=== PATIENT | female | born 2000 ===

== ENCOUNTER 2025-01-12 12:09 | Inpatient (IN) | payer BC, OTHER ==
[~2025-01-12] VITALS: Ht 162.6 cm; Wt 75.0 kg
[2025-01-12 13:53] VITALS: BP 114/85
[2025-01-12 14:04] VITALS: BP 114/85
[2025-01-12] MEDS ORDERED: ZYPREXA PO (14:31)
[2025-01-12] MEDS ORDERED: ONDA4 PO (14:32)
[2025-01-12] MEDS ORDERED: Hydroxyzine Pam25 MG PO (14:32)
[2025-01-12] MEDS ORDERED: Melatonin 3 MG Tab PO PRN (14:55)
[2025-01-12] MEDS ORDERED: Acetaminophen 325 MG TABLET PO PRN (14:55)
[2025-01-12] MEDS ORDERED: TraZODone HCl 50 MG Tab PO PRN (14:55)
[2025-01-12] MEDS ORDERED: Calcium Carbonate 500 MG Tab Chew PO PRN (14:55)
[2025-01-12] MEDS ORDERED: DiphenhydrAMINE HCl 50 MG/ML 1ML Vial IV PRN (14:55)
[2025-01-12] MEDS ORDERED: Aluminum Hydroxide 320MG/5ML 473 ML PO PRN (14:55)
[2025-01-12] MEDS ORDERED: DiphenhydrAMINE HCl 50 MG Cap PO PRN (14:55)
[2025-01-12] MEDS ORDERED: FLU VACC TS2024-25(6MOS UP)/PF 45 MCG/0.5 ML SYRINGE IM SCH (15:00)
[2025-01-12] MEDS ORDERED: Haloperidol Lactate Inj. 5 MG/ML Injection IM PRN (15:00)
[2025-01-12] MEDS ORDERED: Haloperidol 5 MG Tab PO PRN (15:00)
[2025-01-12] MEDS ORDERED: LORazepam 2 MG Tab PO PRN (15:00)
[2025-01-12] MEDS ORDERED: Ibuprofen 600 MG Tab PO PRN (15:00)
[2025-01-12] MEDS ORDERED: LORazepam 2 MG/ML 1ML Injection IM PRN (15:00)
[2025-01-12] MEDS ORDERED: HydrOXYzine Pamoate 50 MG Cap PO PRN (15:00)
[2025-01-12] MEDS ORDERED: OLANZapine ODT 10 MG Tab MM PRN (15:05)
[2025-01-12] MEDS ORDERED: Polyethylene Glycol 3350 17 gm PO PRN (15:05)
[2025-01-12] MEDS ORDERED: Ondansetron 4 MG SoluTab MM PRN (15:10)
[2025-01-12 16:46] VITALS: BP 114/85
--- NOTE | 2025-01-12 18:31 | NUR ---
SHIFT SUMMARY/ARRIVAL NOTE. PT ARRIVED TO THE UNIT FOR DIRECT ADMIT FROM [place] AT APPROX 1345. PT IS AxOx4. PLEASANT AND COOPERATIVE WITH CARE. SHE WAS ADMITTED FOR SI, WHICH SHE IS STILL ENDORSING AT THIS TIME. PT REPORTS RECENT RELATIONSHIP PROBLEMS HAVE TRIGGERED HER CURRENT SI, BUT SHE DENIES PLAN OR INTENT. SHE ALSO REPORTED A HISTORY OF BI POLAR AND TAKES MEDS AND SEES A PSYCHIATRIST AT [facility]. PT HAS BEEN TEARFUL ON AND OFF, BUT IS EASILY REDIRECTABLE AND REASSURED. SHE WAS ORIENTED TO THE UNIT AND HER ADMISSION WAS COMPLETED. PT IS CURRENTLY SITTING IN SENSORY ROOM TALKING ON THE PHONE. SHE APPEARS CALM AND RELAXED AT THIS TIME.
[2025-01-12 20:15] VITALS: BP 119/75
--- NOTE | 2025-01-13 04:21 | NUR ---
SHIFT SUMMARY PT PRESENT IN GROUP ROOM AT START OF SHIFT. SHE REPORTS HER MOOD "SAD". AFFECT IS CONGRUENT TO STATED MOOD. SHE REPORTED FEELING ANXIOUS, MASS SCORE OF 1 FOR WHICH SHE REQUESTED AND RECEIVED VISTARIL. SHE ALSO RECEIVED PRN TRAZODONE TO ASSIST WITH SLEEPING. SHE HAD EVENING SNACK AND WENT TO BED AT APPROXIMATELY 2030. PT HAS APPEARED TO SLEEP WELL. Q15 MINUTE CHECKS TO CONTINUE PER UNIT PROTOCOL.
[2025-01-13 08:12] VITALS: BP 118/77
[2025-01-13] MEDS ORDERED: Multivitamins 1 Tab PO SCH (09:00)
--- NOTE | 2025-01-13 16:48 | NUR ---
SHIFT SUMMARY: PT A/O X4. PLEASSANT AND COOPERATIVE. ADMITS TO BEING SI POSITIVE. HAS NO GUNN. SAID SHE HAS BEEN DEPRESSED FOR A COUPLE MONTHS NOW. STTAED SHE DIDN'T SLEEP MUCH. STATED IT WAS FROM THE BED HURTING HER BACK. MEDCATED WITH TYLENOL AND RESOLVED. PT IS CALM HAS A FLAT AFFECT. HAS GOOD EYE CONTACT. HAS FAMILY SUPPORT OF AND MOTHER AND FATHER. PT TEARING WHEN TALKING ABOUT MISSING HER . PT STATES THAT SHE IS STRESSED AND GETS NAUSEATED. SHE USES ZOFRAN BEFORE MEALS AND IS ABLE TO EAT BETTER AT HOME . ATE A FEW BITES AT BREAKFAST AND ATE BETTER FOR LUNCH. IS WILLING TO GET BETTER WHILE SHE IS "HERE". WILL CONTINUE TO MONITOR, ENCOURAGED TO ASK STAFF FOR THINGS IF SHOULD NEED SOMETHING OR JUST TO TALK.
[2025-01-13 20:53] VITALS: BP 121/69
[2025-01-13] MEDS ORDERED: Lithium Carbonate 300 MG TabCR PO SCH (21:00)
[2025-01-13] MEDS ORDERED: OLANZapine 10 MG Tab PO SCH (21:00)
[2025-01-13] MEDS ORDERED: LamoTRIgine 25 MG Tab PO SCH (21:00)
--- NOTE | 2025-01-14 04:27 | NUR ---
SHIFT SUMMARY PT PRESENT IN GROUP ROOM AT START OF SHIFT, WATCHING TV. SHE IS CALM AND COOPEARTIVE. DENIES ANY SI, HI OR AVH. FLAT AFFECT AND APPEARS SAD. PT WAS SLIGHTLY MORE ENGAGING IN CONVERSATION WITH THIS RN COMPARED TO MY PREVIOUS ENCOUNTER. PT RECEIVED PRN TYLENOL FOR BACK PAIN, SHE WAS COMPLIANT WITH SCHEDULED MEDICATIONS. SHE WENT TO BED AT APPROXIMATELY 2130. Q15 MINUTE CHECKS TO CONTINUE PER UNIT PROTOCOL.
[2025-01-14 06:29] LABS: BASOPHILS ABSOLUTE AUTO 0.07 K/mm3 (0.00-0.23); BASOPHILS PERCENT AUTO 1 % (0-2); EOSINOPHILS ABSOLUTE AUTO 0.12 K/mm3 (0.00-0.68); EOSINOPHILS PERCENT AUTO 2 % (0-6); Hematocrit 42.5 % (33.0-51.0); Hemoglobin 14.6 g/dL (11.5-16.0); IMMATURE GRAN ABSOLUTE AUTO 0.01 K/mm3 (0.00-0.10); IMMATURE GRAN PERCENT AUTO 0 % (0-1); LYMPHOCYTES ABSOLUTE AUTO 2.19 K/mm3 (0.84-5.20); LYMPHOCYTES PERCENT AUTO 37 % (21-46); MONOCYTES ABSOLUTE AUTO 0.59 K/mm3 (0.16-1.47); MONOCYTES PERCENT AUTO 10 % (4-13); Mean Corpuscular HGB 31.6 pg (26.0-34.0); Mean Corpuscular HGB Conc 34.4 g/dL (31.5-36.5); Mean Corpuscular Volume 92 fL (80-100); NEUTROPHILS PERCENT AUTO 49 % (41-73); Platelet Count 300 K/mm3 (150-400); RDW Coefficient Variation 11.9 % (11.7-14.2); Red Blood Cell Count 4.62 M/mm3 (3.80-5.20); White Blood Cell Count 5.88 K/mm3 (4.00-11.30)
[2025-01-14 06:52] LABS: Alanine Aminotransfer (ALT/SGP 22 U/L (12-78); Albumin, Blood 4.1 g/dL (3.4-5.0); Albumin/Globulin Ratio 1.1 (0.8-1.8); Alk Phos 130 U/L (50-136); Anion Gap 12 mmol/L (3-11); Aspartate Aminotrans (AST/SGOT 11 U/L (12-37); Bilirubin, Total 0.3 mg/dL (0.1-1.0); Blood Urea Nitrogen 14 mg/dL (8-24); Bun/Creatinine Ratio 16.7 (12.0-20.0); CHOL/HDL RATIO 4.2; CO2, Blood 26 mmol/L (21-32); Calcium, Blood 9.6 mg/dL (8.5-10.1); Chloride, Blood 106 mmol/L (98-108); Cholesterol 239 mg/dL (50-200); Creatinine, Blood 0.84 mg/dL (0.40-1.00); Globulin, Blood 3.8 g/dL (2.2-4.0); Glomerular Filtration Rate 99 (60-); Glucose, Blood 95 mg/dL (70-99); HDL Cholesterol 57 mg/dL (>39); Low Density Lipoprotein Chol 169 mg/dL (0-110); Potassium, Blood 4.3 mmol/L (3.5-5.5); Sodium, Blood 140 mmol/L (136-145); Total Protein, Blood 7.9 g/dL (6.4-8.2); Triglycerides 65 mg/dL (30-140); Very Low Density Lipoprot Chol 13 mg/dL (6-28)
[2025-01-14 08:08] VITALS: BP 108/69
--- NOTE | 2025-01-14 17:52 | NUR ---
PT A/O X4. PLESANT AND COOPERATIVE. DENIES TO BE SI, HI AND AVH. PARTICIPATES WELL IN GROUPS. HAS SHOWN TO BE IN A LESS SAD MOOD TODAY THAN YESTERDAY BUT STATES STILL DEPRESSED. HAS BEEN ABLE TO CALL AND MOM. PT IS SMILING AND ENGAGED MORE TODAY. GOOD EYE CONTACT TODAY. PT HAD ZOFRAN BEFORE DINNER HOUR NAUSEA PRESANT. PT WAS ABLE TO TAKE IN DINNER WITH HELP OF IT. STATES I'M DOING BETTER" AND MORE SOCIAL IN THE [place] WILL COTINUE TO MONITOR FOR SAFETY AND WELLNESS.
[2025-01-14] MEDS ORDERED: Lithium Carbonate 450 MG TabCR PO SCH (21:00)
[2025-01-14] MEDS ORDERED: OLANZapine 5 MG Tab PO SCH (21:00)
--- NOTE | 2025-01-15 04:25 | NUR ---
SHIFT SUMMARY PT PRESENT IN HALLWAY, TALKING TO HER ROOMMATE AT START OF MY SHIFT. SHE IS PLEASANT AND COOPERATIVE. FLAT AFFECT IS SLIGHTLY IMPROVED FROM MY PREVIOUS SHIFT. PT DENIES ANY SI, HI, THOUGHTS OF SELF HARM OR AVH. PT STATED HER MOOD WAS "FINE, I HAD A GOOD DAY." PT WAS COMPLIANT WITH MEDICATIONS. SHE ASKED FOR AND RECEIVED HYDROXYZINE FOR ANXIETY, MASS SCORE OF 1. PT WENT TO BED AT APPROXIMATELY 2130 AND HAS APPEARED TO SLEEP WELL THROUGHOUT THE NIGHT. Q15 MINUTE CHECKS TO CONTINUE PER UNIT PROTOCOL.
[2025-01-15 08:17] VITALS: BP 119/75
[2025-01-15] MEDS ORDERED: ClonazePAM 1 MG Tab PO PRN (16:30)
--- NOTE | 2025-01-15 16:49 | NUR ---
SHIFT SUMMARY: PT ALERT, ORIENTED AND COOPERATIVE WITH CARE. COMPLIANT WITH MEDICATIONS. DENIED SI, HI AND AVH. PT HAD A VISIT WITH HER MOTHER THIS AFTERNOON. PT ATTENDED GROUPS AND MEALS. PRESENT ON UNIT AND ACTIVE IN MILIEU. TALKING WITH ROOMMATE AND STAFF.
[2025-01-15 20:57] VITALS: BP 124/71
--- NOTE | 2025-01-16 04:46 | NUR ---
SHIFT SUMMARY PATIENT RESTING ON BED IN ROOM AT BEGINNING OF SHIFT. VERBALIZED FEELING ANXIOUS TONIGHT. NOT ELABORATING REGARDING WHY SHE IS FEELING ANXIOUS AT THIS TIME. BACK TO BED AFTER SNACK TIME. COOPERATIVE WITH MEDICATIONS. DENIES SI, HI, AVH. PATIENT APPEARS TO BE SLEEPING WELL T/O NIGHT RESP EVEN AND UNLABORED. CONTINUE TO MONITOR Q15MIN.
[2025-01-16 08:17] VITALS: BP 118/71
[2025-01-16 10:41] LABS: Albumin, Blood 4.3 g/dL (3.4-5.0); Bilirubin, Total 0.3 mg/dL (0.1-1.0); Bun/Creatinine Ratio 15.4 (12.0-20.0); Creatinine, Blood 0.78 mg/dL (0.40-1.00); Globulin, Blood 4.1 g/dL (2.2-4.0); Potassium, Blood 3.8 mmol/L (3.5-5.5); Total Protein, Blood 8.4 g/dL (6.4-8.2)
[2025-01-16 10:43] LABS: Lithium 0.58 mmol/L (0.60-1.20)
--- NOTE | 2025-01-16 16:41 | NUR ---
SHIFT SUMMARY: PT ALERT, ORIENTED AND COOPERATIVE WITH CARE. COMPLIANT WITH MEDICATIONS. DENIES SI,HI AND AVH. STATES THAT SHE DIDN'T SLEEP WELL LAST NIGHT. DISCUSSED PRN MELATONIN TO ASSIST WITH SLEEP, SHE STATES THAT SHE WILL ASK FOR IT IF SHE NEEDS IT. PT C/O CONSTIPATION AND REQUESTED STOOL SOFTNER, PROVIDED WITH MIRALAX PER EMAR. WHEN PT MOTHER LEFT FROM VISIT YESTERDAY SHE REQUESTED TO BE CONTACTED BY OUR POWER MULE OPERATOR TO DISCUSS PT CARE. THIS RN SPOKE WITH PT TODAY REGARDING THIS. SHE STATES THAT SHE HAS ALREADY SPOKEN WITH OUR POWER MULE OPERATOR AND WOULD LIKE TO BE PRESENT FOR THE CONVERSATION BETWEEN THEM. PT MET WITH PROVIDER AND NEW MEDICATIONS ORDERS NOTED. PT HAD A VISITOR IN THE AFTERNOON, THE VISIT APPEARED TO GO WELL. PT PRESENT ON THE UNIT AND ACTIVE IN THE MILIEU.
[2025-01-16 19:50] VITALS: BP 112/74
[2025-01-16] MEDS ORDERED: Lithium Carbonate 300 MG TabCR PO SCH (21:00)
[2025-01-16] MEDS ORDERED: QUEtiapine Fumarate 100 MG Tab PO SCH (21:00)
--- NOTE | 2025-01-17 04:11 | NUR ---
patient is very pleasant and cooperative with staff and peers. She is A&OX4 and denies SI,HI or AVH or TH during evening assessment. She had a good visit with her yesterday afternoon, but she did say it made her very sad when he had to leave and go home to [place] as she doesn't get to see him every day. Will continue close monitoring every 15 minutes for comfort and safety.
[2025-01-17 08:06] VITALS: BP 112/72
--- NOTE | 2025-01-17 17:40 | NUR ---
SHIFT SUMMARY: PT ALERT, ORIENTED AND COOPERATIVE WITH CARE. COMPLIANT WITH MEDICATIONS. SHE DENIES SI, HI AVH. PROVIDED WITH PRN MIRALAX REQUESTED FOR C/O CONSTIPATION. ENCOURAGED PT DRINK FLUIDS TO HELP ASSIST WITH BM WELL. PT PRESENT ON THE UNIT, WATCHING TV, TALKING WITH PEERS AND ENGAGED IN MILIEU.
[2025-01-17] MEDS ORDERED: QUEtiapine Fumarate 200 MG Tab PO SCH (21:00)
[2025-01-17 21:07] VITALS: BP 117/77
--- NOTE | 2025-01-18 04:35 | NUR ---
Alert and oriented times four, pleasant and with a more positive affect than the previous night. Out in the milieu and up for snack time until approximately 2100. She was appreciative of increased dose of Seroquel to help her with her sleep. Denies SI,HI and AVTH during evening assessment. Will continue close monitoring every 15 minutes for comfort and safety
[2025-01-18 08:17] VITALS: BP 114/70
--- NOTE | 2025-01-18 16:54 | NUR ---
SHIFT SUMMARY PT A/O X4; PLEASANT AND COOPERATIVE WITH CARE. SHE DENIES SI, HI, OR ANY HALLUCINATIONS. PT REPORTS THAT HER MOOD HAS BEEN STEADILY IMPROVING AND SHE HAD NO COMPLAINTS THIS SHIFT. SHE REPORTS SOME CONSTIPATION AND GIVEN MIRALAX PRN. PT TO POTENTIALLY DISCHARGE ON SATURDAY. PT PARTICIPATED IN ALL GROUPS AND MEALS THIS SHIFT. WILL REPORT TO [facility].
[2025-01-18 22:02] VITALS: BP 122/77
--- NOTE | 2025-01-19 04:47 | NUR ---
Patient is alert and oriented times four. She spent her evening out in the milieu participating with her peers. Denies suicidal ideation, HI and AVTH during evening assessment. Anushka did c/o anxiety due to the "crowded" feelings she had in the dining room. Vistaril given with good effect. will continue close monitoring every 15 minutes for safety
[2025-01-19 08:17] VITALS: BP 134/77
--- NOTE | 2025-01-19 16:51 | NUR ---
SHIFT SUMMARY PT A/O X4; PLEASANT AND COOPERATIVE WITH CARE. SHE DENIES SI, HI, OR HALLUCINATIONS. PT REPORTS THAT SHE IS DOING WELL BUT IS STILL SOMEWHAT WORRIED ABOUT GOING HOME. SHE C/O CONSTIPATION THAT HAS BEEN ONGOING. GIVEN PRN MIRALAX THIS SHIFT. SHE ATTENDED ALL MEALS AND GROUPS THIS SHIFT. PT IS TO POTENTIALLY DISCHARGE HOME ON SATURDAY.
[2025-01-19 21:10] VITALS: BP 127/84
--- NOTE | 2025-01-20 01:11 | NUR ---
Patient feeling anxious and has woken up and can't go back to sleep. too early for another vistaril which she received for anxiety with her HS meds at bedtime. Melatonin given now for sleep. Will continue close monitoring for comfort and safety
--- NOTE | 2025-01-20 04:23 | NUR ---
alert and oriented times four. Anushka had a good evening in the milieu, grabbed a small snack and went to bed early. She asked for a vistaril at as she was feeling down and anxious, and really wanted to try to "sleep it off". She is excited about her upcoming discharge in the next couple of days, and seemed to cheer up a little as we talked about it before bed. Later around 0100, she woke again, and was not able to go back to sleep. She agreed to take the Melatonin, and this nurse told her I would check on her in about one hour to see if she was still awake at which time I could give her another Vistaril. She was back to sleep, and has continued to sleep as of this writing. No SI,HI or AVTH noted on evening assessment. Will continue close monitoring every 15 minutes for safety and comfort.
[2025-01-20 07:54] VITALS: BP 114/69
[2025-01-20 12:07] LABS: Lithium 0.84 mmol/L (0.60-1.20)
--- NOTE | 2025-01-20 17:18 | NUR ---
SHIFT SUMMARY: PT ALERT, ORIENTED AND COOPERATIVE WITH CARE. DENIES SI, HI AND AVH. PT DISCUSSED LOOKING FORWARD TO DISCHARGING HOME TOMORROW. REQUESTED TO HAVE RX SENT TO [facility]. PROVIDER PUT IN DISCHARGE MED REC AND RX CALLED TO [facility] AT [phone]. PT C/O OF NOT CONSTIPATION, MEDICATED WITH MIRALAX PRN PER EMAR. PT WAS PRESENT FOR MEALS, ATTENDED GROUPS AND PARTICIPATED IN UNIT MILIEU.
[2025-01-20 20:06] VITALS: BP 121/80
--- NOTE | 2025-01-21 04:11 | NUR ---
SHIFT SUMMARY PT PRESENT IN GROUP ROOM AT START OF SHIFT. SHE STATED SHE IS LOOKING FORWARD TO GOING HOME TOMORROW, BUT IS A LITTLE ANXIOUS. MASS SCORE OF 1. PT DENIES ANY SI, HI, THOUGHTS OF SELF HARM OR AVH. SHE WAS COMPLIANT WITH EVENING MEDS, RECEIVED PRN MELATONIN AND VISTARIL. PT HAD EVENING SNACK AND WENT TO BED SHORTLY AFTER. Q15 MINUTE CHECKS TO CONTINUE PER UNIT PROTOCOL AND FOR SAFETY.
[2025-01-21 07:57] VITALS: BP 120/75
--- NOTE | 2025-01-21 08:12 | NUR ---
HOSPITAL DISCHARGE APPOINTMENT INFORMATION Patient is scheduled to meet with Karrie Robbins, MSN, UTILIZATION COORDINATOR on 01/26/25 at 1040 at [facility] [address], [address] [place], [place] [address] // [phone] PEDRO entered appointment information into patient's discharge packet
[2025-01-21] MEDS ORDERED: LAMO25 PO (09:20)
[2025-01-21] MEDS ORDERED: QUET200 PO (09:21)
[2025-01-21] MEDS ORDERED: LITH300ER PO (09:21)
--- NOTE | 2025-01-21 13:35 | NUR ---
DISCHARGE NOTE: PT DISCHARGED HOME. STATES UNDERSTANDING OF DISCHARGE INSTRUCTIONS AND DENIED QUESTIONS. PT MOTHER ARRIVED FOR RIDE HOME AND HAS SPOKEN WITH RECEIVING WEIGHER. PT DENIED SI, HI AND AVH. PT BELONGINGS RETURNED BY ELI VASQUEZ. AMBULATED OUT OF DEPT WITHOUT DIFFICULTY. DISCHARGE INSTRUCTIONS AND BELONGINGS IN HAND.
== END 2025-01-21 13:30 | disposition home or self-care (01) | DRG 885 ==
LOC: BHU 12:09
PROVIDERS: Psychiatry & Neurology Psychiatry; ADMIT Student in an Organized Health Care Education/Training Program
DX: F31.4 Bipolar disorder, current episode depressed, severe, without psychotic features (principal); R45.851 Suicidal ideations; F43.25 Adjustment disorder with mixed disturbance of emotions and conduct; Z79.899 Other long term (current) drug therapy; Z79.1 Long term (current) use of non-steroidal anti-inflammatories (NSAID); Z79.891 Long term (current) use of opiate analgesic
CPT/HCPCS: 36415; 80053; 80061; 80178; 83036; 84443; 85025; 86592; 93005; 93010; A9270